=== PATIENT | female | born 1955 | race Asian ===

== ENCOUNTER → 2021-02-10 | Outpatient (CLI) | payer BC, MEDICARE, OTHER ==
[2016-02-05 12:11] VITALS: BP 144/74
[~2021-02-10] MED LIST: ACET325T9 PO; ASPI-630 PO; CIPR250T30 PO; CIPR500T94 PO; METR250T PO; MULT-445 PO
--- NOTE | 2021-02-10 15:34 | RAD ---
EXAM: ULTRASOUND PELVIS INDICATION: Reason: PMB. Patient states bloody stool. Last menstrual period was unknown. History of 40 years prior COMPARISON: CT of the abdomen and pelvis dated February 022015 TECHNIQUE: Transabdominal pelvic sonography was performed. FINDINGS: The urinary bladder is only partially fluid distended and demonstrates a suboptimal acoustic window. Cervix is obscured. The uterus is somewhat elongated measuring 9.1 x 3.6 x 1.5 cm. Endometrium is not well seen. No definite myometrial abnormalities are evident. No free or loculated fluid collections are identified. The ovaries are not visualized. IMPRESSION: 1. Somewhat limited pelvic ultrasound with nonvisualization of the cervix, endometrium, and bilateral ovaries. No gross myometrial abnormalities of the uterus. Electronically signed by: Eris Hollingsworth MD (02/10/2021 3:31 PM) [id number]
== END ==
LOC: US 11:02
PROVIDERS: ATTEND Specialist
DX: N93.9 Abnormal uterine and vaginal bleeding, unspecified (principal); N32.89 Other specified disorders of bladder
CPT/HCPCS: 76856